=== PATIENT | male | born 2000 | race Hispanic/Latino ===

== ENCOUNTER 2020-10-07 06:57 | Emergency (ER) | payer OTHER ==
[~2020-10-07] VITALS: Ht 170.2 cm; Wt 61.2 kg
== END 2020-10-07 07:22 | disposition home or self-care (01) ==
LOC: ER 07:15
DX: R50.9 Fever, unspecified (principal); R05 Cough; R53.81 Other malaise; M79.10 Myalgia, unspecified site
CPT/HCPCS: 99283